=== PATIENT | female | born 1955 | race Caucasian/White ===

== ENCOUNTER → 2016-07-15 | Outpatient (CLI) | payer OTHER ==
[2016-07-19 13:48] LABS: VARICELLA IGG AB INDEX 4.2 (()); VARICELLA ZOSTER IGG Positive (())
[2016-07-19 13:49] LABS: MUMPS IGG ANTIBODY Negative (()); MUMPS IGG ANTIBODY INDEX <0.2 (())
[2016-07-19 21:46] LABS: MEASLES IGM Negative (Negative)
[2016-07-20 08:17] LABS: MEASLES IGG Positive (()); MEASLES IGG AB INDEX 6.6 (())
== END ==
LOC: LAB 08:12
PROVIDERS: ATTEND Physician Assistant Medical
DX: Z02.0 Encounter for examination for admission to educational institution (principal)
CPT/HCPCS: 86705; 86735; 86765; 86787